=== PATIENT | female | born 1970 | race Caucasian/White ===

== ENCOUNTER 2018-11-06 09:02 | Inpatient (IN) | payer OTHER ==
[~2018-11-06] VITALS: Ht 160 cm; Wt 62.1 kg
[2018-11-09] MEDS ORDERED: INTESTINEX680 M1 PO (08:38)
[2018-11-09] MEDS ORDERED: ULTRACET PO (08:38)
== END 2018-11-09 10:01 | disposition home or self-care (01) | DRG 395 ==
LOC: SURH 11-08 08:47 → O/R 11-08 08:47 → SURH 11-08 09:15
PROVIDERS: ADMIT Surgery
PROC: 0DBP8ZZ Excision of Rectum, Via Natural or Artificial Opening Endoscopic (ICD-10-PCS; principal; 2018-11-08 10:30)
DX: D12.8 Benign neoplasm of rectum (principal)

== ENCOUNTER 2018-11-21 08:07 | Emergency (ER) | payer OTHER ==
[~2018-11-21] VITALS: Ht 160 cm; Wt 65.8 kg
[~2018-11-21 08:07] MED LIST: INTESTINEX680 M1 PO; ULTRACET PO
== END 2018-11-21 15:32 | disposition home or self-care (01) ==
LOC: ER 08:07
DX: R10.84 Generalized abdominal pain (principal)